=== PATIENT | male | born 1955 | race Caucasian/White ===

== ENCOUNTER 2022-01-29 05:45 | Inpatient (IN) ==
--- NOTE | 2022-01-26 11:20 | Anesthesiology Consultation ---
Date of Service January 26, 2022 Assessment & Plan (1) Encounter for pre-operative examination: Chart Review Chart Review: Acceptable Risk for Surgery and Patient NOT seen in Pre Admission Testing -COVID screening: Per PAT nursing assessment on 01/26/22. Pt tested Covid positive "at the beginning of Dec 2021" with home test. Had flu like symptoms- symptoms have since resolved. Pt scheduled to get PCR Covid test 01/26/22- results negative for Covid. No known recent COVID-19 positive contacts or current COVID-19 related symptoms. Travel screen negative. Patient vaccinated for Covid. History Surgery Operation Date: 01/29/22 07:30 Proposed Procedures p Robotic Laparoscopic Assisted Parital Left Nephrectomy - Peterson Rivas MD Height/Weight Height: 5 ft 8 in Weight: 81.647 kg Allergies Allergy/AdvReac Type Severity Reaction Status Date / Time Penicillins AdvReac Mild NAUSEA Verified 01/26/22 07:29 surgical maco Allergy Unknown ? Uncoded 01/26/22 07:30 reaction/was told reacted to Medications Home Medications Medication Instructions Recorded Confirmed Last Taken cholecalciferol (vitamin D3) 50 50 mcg PO QAM 10/01/20 01/26/22 Unknown mcg (2,000 unit) capsule tamsulosin 0.4 mg capsule 0.4 mg PO DAILY #90 caps 06/04/21 01/26/22 Unknown atenolol 25 mg tablet 25 mg PO BID 12/11/21 01/26/22 Unknown Medical Marijuana 1 dose inhalation UD PRN Anxiety 01/26/22 01/26/22 Unknown lorazepam 0.5 mg tablet 0.5 mg PO DAILY PRN Anxiety 01/26/22 01/26/22 Unknown sertraline 100 mg tablet 100 mg PO QAM 01/26/22 01/26/22 Unknown Past Medical History Medical History Anxiety and depression Degenerative disc disease History of COVID-19 begnining of December 2021 History of prostate cancer S/P RADIATION Hx of bipolar disorder Hyperlipemia Hypertension Kidney tumor REASON FOR SURGERY Medical marijuana use Past Family History Family History Mother , Passed age 60 of metastatic breast cancer No problems noted. Father , Passed age 66 of Prostate Cancer No problems noted. Brother No problems noted. Sister No problems noted. Sister No problems noted. Sister No problems noted. Sister No problems noted. Son No problems noted. Daughter No problems noted. Other No family history of adverse response to anesthesia Past Surgical History Surgical History History of anesthesia reaction WOKE UP IN MIDDLE OF TOE SURGERY ([facility]) History of back surgery (2012) Lumbar Spine Fusion History of cholecystectomy (1987) History of colonoscopy History of prostate biopsy (04/10/20) History of surgery on arm (2015) BICEP TENDON REPAIR>LEFT History of toe surgery Left Big Toe - Arthroscopic History of tonsillectomy History of tooth extraction History of ureter repair (1974) Right - Blocked Ureter Repair Social History Smoking Status: Former smoker tobacco type: cigarettes Smoking End Date: 5 YEARS Hx Alcohol Use: No Alcohol type: beer Hx Substance Use: No ([employer]) Lab Results Anesthesia Preop Results Results Anesthesia Widget: WBC 4.16 K/ul (4.8-10.8) L 01/14/22 Hgb 14.5 g/dl (14.0-18.0) 01/14/22 Hct 41.2 % (40.1-51.0) 01/14/22 Plt 132 K/uL (130-400) 01/14/22 Na 138 mmol/L (136-145) 01/14/22 K 3.9 mmol/L (3.5-5.1) 01/14/22 Cl 107 mmol/L (98-107) 01/14/22 CO2 24 mmol/L (21-32) 01/14/22 BUN 14 mg/dl (6-23) 01/14/22 Creat 0.82 mg/dl (0.6-1.4) 01/14/22 Glucose Level 75 mg/dl (70-99(Fasting)) 01/14/22 Urine Color Yellow 01/14/22 Urine Appearance Clear (Clear) 01/14/22 Urine pH 5.5 (4.5-7.5) 01/14/22 Urine Specific [place] 1.025 (1.000-1.030) 01/14/22 Urine Protein Negative (Negative) 01/14/22 Urine Glucose (UA) Negative (Negative) 01/14/22 Urine Ketones Negative (Negative) 01/14/22 Urine Blood Negative (Negative) 01/14/22 Urine Nitrite Negative (Negative) 01/14/22 Urine Bilirubin Negative (Negative) 01/14/22 Urine Urobilinogen Negative (Negative) 01/14/22 Urine Leukocyte Esterase Negative (Negative) 01/14/22 Testing Laboratory Results 01/14/22= URINE CULTURE: No growth Electrocardiogram Date: 01/14/22 Sinus bradycardia with first-degree AV block at 55 bpm Otherwise normal EKG per cardio Echocardiogram Date: 07/16/21 EF: 55% LV Function: normal RWMA: + none Other Findings: no LVH Valvular Disease: + no significant valvular disease Other Testing Chest CT 01/14/2022 = 3 mm indeterminate pulmonary nodule within the right middle lobe. Follow-up recommended. Otherwise no evidence for metastatic disease within the chest. Redemonstration of 4.5 cm left renal mass.
[2022-01-29] MEDS ORDERED: LR 15ML/HR IV SCH (06:00)
[2022-01-29] MEDS ORDERED: ceFAZolin 2000MG 2,000 MG/15 ML SYR IV SCH (06:00)
[2022-01-29] MEDS ORDERED: MIDAZOLAM HCL 1 MG/ML 2ML VIAL ONE (06:51)
[2022-01-29] MEDS ORDERED: fentaNYL citrate 100 MCG/2 ML VIAL ONE (06:51)
--- NOTE | 2022-01-29 06:54 | History & Physical Bridge Note ---
Date of Service January 29, 2022 History & Physical Bridge Note I have examined the patient, reviewed the History & Physical and in the interval since the performance of the History & Physical I have noted the following changes of clinical significance: no changes noted
[2022-01-29] MEDS ORDERED: PROPOFOL IV EMULSION 10 MG/ML 20 ML VIAL IV ONE (06:59)
[2022-01-29] MEDS ORDERED: ONDANSETRON INJ 2 MG/ML 2 ML VIAL ONE ×2 (06:59→12:11)
[2022-01-29] MEDS ORDERED: LIDOCAINE 2% MPF LOCAL 5 ML VIAL INFIL ONE (06:59)
[2022-01-29] MEDS ORDERED: ROCURONIUM BROMIDE 10 MG/ML 5 ML VIAL IV ONE ×7 (06:59→12:10)
[2022-01-29] MEDS ORDERED: GELATIN SPONGE SZ 100 ONE (07:02)
[2022-01-29] MEDS ORDERED: BUPIVACAINE 0.5 % 5 MG/1 ML MPF 30ML VIAL ONE (07:02)
[2022-01-29] MEDS ORDERED: fentaNYL citrate 100 MCG/2 ML VIAL IV PRN (07:17)
[2022-01-29] MEDS ORDERED: ONDANSETRON INJ 2 MG/ML 2 ML VIAL IV PRN ×2 (07:17→14:34)
[2022-01-29] MEDS ORDERED: ePHEDrine sulfate 50 MG/ML AMP IV PRN (07:17)
[2022-01-29] MEDS ORDERED: ATROPINE SULFATE 0.1 MG/ML 10ML SYR IV PRN (07:17)
[2022-01-29] MEDS ORDERED: ePHEDrine sulfate 50 MG/ML SYR ONE (08:42)
[2022-01-29] MEDS ORDERED: GLYCOPYRROLATE 0.2 MG/ML VIAL ONE ×3 (08:42→12:10)
[2022-01-29] MEDS ORDERED: NEOSTIGMINE METHYLSULFATE 1 MG/ML 10ML VIAL ONE (08:43)
[2022-01-29] MEDS ORDERED: DEXAMETHASONE SOD INJ 4 MG/ML VIAL ONE (08:43)
[2022-01-29] MEDS ORDERED: HYDROmorphone INJ 2 MG/ML SYR/VIAL ONE (09:11)
[2022-01-29] MEDS ORDERED: TISSEEL FIBRIN SEALANT 10ML TOP ONE (10:02)
[2022-01-29] MEDS ORDERED: ceFAZolin 1000MG 1,000 MG/7.5 ML SYR IV ONE (11:20)
[2022-01-29] MEDS ORDERED: ePHEDrine sulfate 50 MG/ML AMP ONE (11:46)
[2022-01-29] MEDS ORDERED: SURGICEL ABSORB HEMOSTAT 2IN X 14IN TOP ONE (11:54)
[2022-01-29] MEDS ORDERED: SUGAMMADEX SODIUM 200 MG/2 ML VIAL IV ONE (12:29)
--- NOTE | 2022-01-29 13:03 | Post Operative Brief Note ---
PG Immediate Post Op with CF Date of Surgery January 29, 2022 Pre & Post Diagnosis Operation Date: 01/29/22 07:30 Pre-Op Diagnosis: Renal Mass Post-Op Diagnosis: Renal Mass I identified the patient and participated in the time-out.: Yes Procedure Operation Date: 01/29/22 07:30 Actual Procedures p Robotic Laparoscopic Assisted Partial Left Nephrectomy(Left) - Peterson Rivas MD Surgeon Peterson Rivas MD Paper Box Cutter MAGALIE Langford. Edward Estrada MD. Estimated Blood Loss 300 Findings See Below Left renal mass identified and removed. Kidney capsule was closed with good hemostasis. Specimens Specimen Description: A. left renal mass Drains Greene Catheter (inserted by Jung CAO without complications) Anesthesia Type General Complications none Disposition Accompanied Patient To Recovery: Yes Disposition: Recovery Room
--- NOTE | 2022-01-29 13:27 | Operative Report ---
PG Post Operative Report Pre & Post Diagnosis Operation Date: 01/29/22 07:30 Pre-Op Diagnosis: Left renal Mass Post-Op Diagnosis: Left renal Mass I identified the patient and participated in the time-out.: Yes Procedure Operation Date: 01/29/22 07:30 Actual Procedures p Robotic Laparoscopic Assisted Partial Left Nephrectomy(Left) - Peterson Rivas MD Surgeon Peterson Rivas MD Director [employer] MAGALIE Langford. Edward Estrada MD. Estimated Blood Loss 300 Findings See Below Specimens Left renal mass Drains Greene catheter per urethra Anesthesia Type General Complications none Disposition Accompanied Patient To Recovery: Yes Disposition: Recovery Room Indications This is a 67-year-old male recently seen in the urology office for evaluation of gross hematuria. Work-up identified a left-sided renal mass. He presents to the OR today for surgical removal of his renal mass. Description of Procedure The patient was identified and informed consent was obtained. He was marked on the left side that was brought to the operating room where general anesthesia was initiated. He was placed in a flank position with the left side elevated. All pressure points were carefully padded. A timeout was then performed. Surgical marker was used to draw a line approximately 7 cm to the left of the umbilicus, in the mid clavicular area. Anticipated port sites were marked starting approximately 2 fingerbreadths below the costal margin. Subsequent ports were anticipated to be 6 to 7 cm space down this line. The second site was incised and then dissection was carried down to the fascia. A Veress needle was used to obtain access to the peritoneum. Good position was confirmed with a negative aspiration, appropriate drop test and low opening insufflation pressure. The abdomen was then inflated to 15 mmHg. The first robotic port was then placed and the camera was inserted. The abdominal cavity was surveyed. There was no injury to any visceral structures. There was some adhesions of the left colon to the abdominal wall. There were also some adhesions on the right side, but these appeared to be out of the way of where we would need to be placing ports. The remaining 3 robotic ports were placed under direct visualization. A 12 mm staffing assistant port was then placed in the midline. The robot was then docked. I began by sharply lysing the adhesions of the colon to the left abdominal wall. I was then able to reflect the colon along the white line of Toldt to expose Gerota's fascia. Once the colon was sufficiently reflected, the gonadal vessels and left ureter were identified. These were then dissected cephalad to identify the renal hilum. He had one renal artery and one renal vein. Adequate windows were dissected to facilitate placement of bulldog clamps on both vessels. I then turned my attention toward the renal mass. The mass was on the upper pole of his left kidney. I had to mobilize the upper pole to freed up from splenic attachments. Once there was adequate mobility, Gerota's fascia was incised and the fat was dissected away to expose the renal mass. The intraoperative ultrasound was then introduced and used to survey this area of the kidney. The mass appeared to be mostly exophytic and was deemed suitable for partial nephrectomy. The bulldog clamps were then applied to the renal artery and the renal vein. There was good blanching of the kidney. The renal mass was sharply excised leaving a margin of normal-appearing kidney tissue around the mass itself. Any point bleeding vessels were cauterized. Once the mass was free from the kidney, renorrhaphy was performed using a 2 layer approach. A 2-0 V-Loc suture was placed in the deep portion of the kidney defect and secured using Hem-o-maddy clips on both sides. The renal capsule was then reapproximated using interrupted 2-0 V-Loc sutures also secured with Hem-o-loks and Lapra-Ty's. There was good hemostasis at this point. The bulldog clips were then removed and there was still good hemostasis. Total warm ischemia time was 20 minutes and 8 seconds. A layer of Surgicel and Tisseel were applied to the resection area in the hilum. The renal mass was placed in a specimen bag. Final survey of the abdomen revealed good hemostasis and no injury to intra-abdominal contents. The robot was dedocked. The specimen was extracted through the staffing assistant port in the midline and was sent for analysis labeled as left renal mass. The wounds were then closed. The extraction site was closed using a deep 0 Vicryl running suture for the fascia. All wounds were anesthetized using 0.5% Marcaine. Skin incisions were closed using running subcuticular 4-0 Monocryl for the extraction site and buried interrupted 4-0 Monocryls for the robot sites. The patient was then awakened from anesthesia and brought to the PACU in stable condition. All sponge and instrument counts were correct at the end of the case. Of note, MAGALIE Langford acted as bedside staffing assistant for the majority of the case, helping with initial positioning, access, retraction, dissection and with closing. Edward Estrada DO acted as bedside staffing assistant for the mass excision and renorrhaphy. I attest to the content of the Intraoperative Record and any orders documented therein. Any exceptions are noted below.
--- NOTE | 2022-01-29 13:34 | Anesthesiology Progress Note ---
Date of Service January 29, 2022 Anesthesia Post Procedure Vital Signs Vital Signs: Temp Pulse Resp BP Pulse Ox O2 Del Method O2 Flow Rate 01/29/22 13:30 97.2 F L 62 17 94/55 L 94 Room Air 01/29/22 13:20 62 16 105/66 94 Room Air 01/29/22 13:10 77 16 100/52 L 98 Oxymask 5 01/29/22 13:00 67 16 92/44 L 98 Oxymask 5 01/29/22 12:52 96.8 F L 72 16 104/64 98 Oxymask 5 01/29/22 06:15 98.1 F 70 16 141/89 H 99 Room Air Transfer of Care Handoff Completed per policy Notes Mental Status: alert / awake / arousable and participated in evaluation Patient Amnestic to Procedure: Yes Nausea / Vomiting: adequately controlled Pain: adequately controlled Airway Patency, RR, SpO2: stable & adequate BP & HR: stable & adequate Hydration State: stable & adequate Anesthetic Complications: no major complications apparent and Pt Satisfied with anesthetic care
[2022-01-29 13:57] LABS: Hematocrit (blood only) 36.4 % (40.1-51.0); Hemoglobin 12.6 g/dl (14.0-18.0); Mean Corpuscular Hemoglobin 33.3 pg (25.0-34.0); Mean Corpuscular Hgb Conc 34.6 g/dL (32.0-36.0); Mean Corpuscular Volume 96.3 fL (80.0-100.0); Mean Platelet Volume 10.2 fL (9.4-12.4); Platelet Count 131 K/uL (130-400); RDW Coefficient of Variation 12.8 % (11.5-14.5); RDW Standard Deviation 45.5 fL (36.4-46.3); Red Blood Count 3.78 M/uL (4.63-6.08); White Blood Count 7.75 K/ul (4.8-10.8)
[2022-01-29 14:02] LABS: BUN Creatinine Ratio 14.8 (10-20); Calcium 8.2 mg/dl (8.5-10.1); Creatinine Clr Calc Pharmacy 85.7 ml/min; Est GFR (Non-African American) 88.9 ml/min; Potassium 3.7 mmol/L (3.5-5.1)
[2022-01-29 14:16] LABS: Basophils # (auto) 0.01 K/uL (0-0.2); Basophils % (auto) 0.1 %; Immature Granulocytes # (auto) 0.06 K/uL (0.00-0.02); Immature Granulocytes % (auto) 0.8 %; Lymphocytes # (auto) 0.53 K/uL (1.2-3.4); Lymphocytes % (auto) 6.8 %; Monocytes # (auto) 0.22 K/uL (0.24-0.82); Monocytes % (auto) 2.8 %; Neutrophils # (auto) 6.93 K/uL (1.4-6.5); Neutrophils % (auto) 89.5 %
[2022-01-29] MEDS ORDERED: MoRPHine SULFATE 2 MG/ML CARP IV PRN (14:34)
[2022-01-29] MEDS ORDERED: oxyCODONE HCL IR 5 MG TAB (IMMEDIATE RELEASE) PO PRN (14:34)
[2022-01-29] MEDS ORDERED: LORazepam 0.5 MG TAB PO PRN (14:34)
[2022-01-29] MEDS ORDERED: bisacodyL 5 MG TABEC PO PRN (14:34)
[2022-01-29] MEDS ORDERED: MoRPHine SULFATE 4 MG/ML 1 ML CARP\\VIAL IV PRN (14:34)
[2022-01-29] MEDS: LACTATED RINGER'S 1,000 ML IV SCH (15:26)
[2022-01-29] MEDS: ceFAZolin 2000MG 2,000 MG/15 ML SYR IV SCH ×2 (15:45→22:55)
[2022-01-29] MEDS: ACETAMINOPHEN 325 MG TAB PO SCH ×2 (15:45→20:51)
[2022-01-29] MEDS: oxyCODONE HCL IR 5 MG TAB (IMMEDIATE RELEASE) PO PRN (20:50)
[2022-01-29] MEDS: HEPARIN SOD 5,000 UNIT/0.5 ML VIAL SQ SCH (20:51)
[2022-01-29] MEDS: ATENOLOL 25 MG TABLET PO SCH (20:51)
[2022-01-29] MEDS: DOCUSATE SODIUM 100 MG CAP PO SCH (20:51)
[2022-01-30] MEDS: LACTATED RINGER'S 1,000 ML IV SCH ×2 (01:47→08:49)
[2022-01-30] MEDS: ACETAMINOPHEN 325 MG TAB PO SCH ×4 (02:31→20:08)
[2022-01-30 07:34] LABS: Hematocrit (blood only) 32.3 % (40.1-51.0); Hemoglobin 11.3 g/dl (14.0-18.0); Mean Corpuscular Hemoglobin 33.9 pg (25.0-34.0); Mean Platelet Volume 10.4 fL (9.4-12.4); Platelet Count 110 K/uL (130-400); RDW Coefficient of Variation 13.1 % (11.5-14.5); RDW Standard Deviation 46.4 fL (36.4-46.3); Red Blood Count 3.33 M/uL (4.63-6.08); White Blood Count 7.75 K/ul (4.8-10.8)
[2022-01-30 07:49] LABS: Basophils # (auto) 0.01 K/uL (0-0.2); Basophils % (auto) 0.1 %; Eosinophils # (auto) 0.01 K/uL (0-0.50); Eosinophils % (auto) 0.1 %; Immature Granulocytes # (auto) 0.04 K/uL (0.00-0.02); Immature Granulocytes % (auto) 0.5 %; Lymphocytes # (auto) 1.02 K/uL (1.2-3.4); Lymphocytes % (auto) 13.2 %; Monocytes # (auto) 0.87 K/uL (0.24-0.82); Monocytes % (auto) 11.2 %; Neutrophils % (auto) 74.9 %
[2022-01-30 07:56] LABS: BUN Creatinine Ratio 14.8 (10-20); Calcium 8.2 mg/dl (8.5-10.1); Creatinine Clr Calc Pharmacy 93.5 ml/min; Est GFR (African American) 106.6 ml/min; Potassium 4.3 mmol/L (3.5-5.1)
--- NOTE | 2022-01-30 08:11 | Urology Progress Note ---
Date of Service January 30, 2022 Assessment & Plan (1) Kidney tumor: Plan: Overall he is recovering appropriately from surgery. We reviewed goals for discharge including tolerating a diet, ambulating and pain under control on oral medications. I think he is likely going to be ready for discharge home today. Catheter can be removed this morning. Admission and Anticipated Discharge Date Admission Date: January 29, 2022 Subjective Feeling well Has not been up and ambulating at Minimal p.o. intake so far. He is passing some flatus. Not having too much pain, needed 1 Oxycodone overnight. No issues with catheter overnight Review of Systems Constitutional: No fevers chills Gastrointestinal: No nausea or vomiting Physical Exam Physical Exam: Well-appearing, NAD Respiratory: Breathing comfortably on room air, no audible wheezing Gastrointestinal (Abdomen): Abdomen soft, appropriately tender to palpation. Incisions are well approximated with Dermabond in place. No significant bruising. Genitourinary: Greene catheter in place draining light pink-tinged urine Results & Data ([facility]) Vital Signs (Past 12 Hours) Vital Signs Temp Pulse Resp BP BP Pulse Ox O2 Del Method 01/30/22 07:40 36.9 C 63 16 125/70 96 Room Air 01/30/22 02:43 36.9 C 68 18 120/72 96 Room Air 01/29/22 22:55 37 C 74 16 132/72 96 Room Air PG Care Time/CCT Total # of Minutes Spent Total Time Spent with Patient: Total time spent is greater than 50% in coordination of care (as documented) at patient's floor/unit and/or counseling patient: Coding Level of Care Code None Diagnoses Kidney tumor D49.519
[2022-01-30] MEDS: oxyCODONE HCL IR 5 MG TAB (IMMEDIATE RELEASE) PO PRN ×2 (08:15→15:27)
[2022-01-30] MEDS: ATENOLOL 25 MG TABLET PO SCH ×2 (08:19→20:09)
[2022-01-30] MEDS: DOCUSATE SODIUM 100 MG CAP PO SCH ×2 (08:19→20:08)
[2022-01-30] MEDS: SERTRALINE HCL 100 MG TABLET PO SCH (08:19)
[2022-01-30] MEDS: CHOLECALCIFEROL 1,000 UNITS 25 MCG TAB PO SCH (08:19)
[2022-01-30] MEDS: TAMSULOSIN HCL 0.4 MG CAP PO SCH (08:19)
[2022-01-30] MEDS: HEPARIN SOD 5,000 UNIT/0.5 ML VIAL SQ SCH ×2 (08:20→20:08)
--- NOTE | 2022-01-30 08:29 | Discharge Summary ---
Date of Service January 30, 2022 Admission HPI Per Admitting Provider This is a 67-year-old male recently seen in the urology office for evaluation of gross hematuria. Work-up identified a left-sided renal mass. He presents to the OR today for surgical removal of his renal mass. Admission Exam Per Admitting Provider Physical Exam Constitutional well developed and well nourished; no acute distress Eyes + anicteric sclerae; pupils not irregular Respiratory normal respiratory effort; no respiratory distress, does not use accessory muscles and no cough Cardiovascular well perfused Gastrointestinal (Abdomen) Inspection/Auscultation: abdomen normal to inspection; abdomen not distended Musculoskeletal Extremities: extremities normal to inspection Skin normal turgor; no rashes and no lesions Neurologic moves all extremities and awake Psychiatric Orientation: alert and oriented x 3 Principal Diagnosis Renal mass Discharge Exam Constitutional well developed and well nourished; no acute distress Respiratory normal respiratory effort; no respiratory distress and no labored breathing Gastrointestinal (Abdomen) Inspection/Auscultation: abdomen not distended Skin incisions appropriate, C/D/I Psychiatric Orientation: alert and oriented x 3 Discharge Data Allergies Allergy/AdvReac Type Severity Reaction Status Date / Time Penicillins AdvReac Mild NAUSEA Verified 01/29/22 06:09 surgical maco Allergy Unknown ? Uncoded 01/29/22 06:09 reaction/was told reacted to Procedures Performed Operation Date: 01/29/22 07:30 Actual Procedures p Robotic Laparoscopic Assisted Partial Left Nephrectomy(Left) - Peterson Rivas MD Hospital Course (1) Kidney tumor: Overall he is recovering appropriately from surgery. We reviewed goals for discharge including tolerating a diet, ambulating and pain under control on oral medications. I think he is likely going to be ready for discharge home today. Catheter can be removed this morning. Patient tolerating diet and ambulating without difficulty. He is ready for discharge to home after void. If unable to void, then catheter can be replaced with plan to remove next week in office. Total Time Total Time Spent Total Time Spent (In Minutes): 29 Discharge Plan Discharge Items Patient Disposition: Home - Self-Care Reason For Visit: Renal Mass Discharge Diagnosis: Renal Mass Activity: Per Instructions section Lifting: No more than 25 pounds Bathing Comment: Okay to shower, no tub bath or soaking Sexual Activity: Wait until after follow-up appointment Exercise/Sports: Wait until after follow-up appointment Driving/Machine Use: No driving while taking prescription pain medication Non-emergency contact: Surgeon and Urologist Call non-emergency contact if: you have any medication questions, your pain is not controlled, your pain is worsening, you have a fever, your temperature is above 101, your wound has increased redness, your wound has increased drainage and your wound pain has increased Follow-up/Referrals: Wally Robertson [Primary Care Provider] - Diet: Regular Addtl Attending Provider Instructions: Please take all medications as prescribed and keep all follow-ups as scheduled. Please call our office at [phone] with any questions, concerns or need to reschedule appointments for any reason. We are happy to assist you. Recovering at home: We recommend having someone with you for the first few days after surgery to help care for you. It is okay to shower tomorrow. Please avoid swimming, bathing or using hot tub until incisions are well healed. Avoid driving until you are not requiring pain medication any further. Walk at least a few times a day. Increase your distance, as you feel able. Stairs in your home are okay. Please avoid strenuous or sexual activity until your follow-up. We recommend using stool softener (i.e. Colace) to prevent constipation and straining, especially the first two weeks post operatively. [place] [facility] [place] [facility] [place] [phone] if you experience: Chest pain or trouble breathing (call [phone] or go to the hospital). Fever of 101F or higher Symptoms of infection at incision site, including redness or swelling, warmth, or bad-smelling drainage If you have catheter, and you notice: o Bloody urine or drainage that is dark red or has large clots (Please remember a small amount of blood is normal) o No drainage from the catheter for more than 6 hours o The catheter comes out of your bladder Pain that is not controlled with medicines Pending Studies at Discharge: Yes Studies:: Pathology Stand-Alone Forms: My Chartboost, Smoking Cessation Medications and DC Order Prescriptions: New docusate sodium [Colace] 100 mg capsule 100 mg PO BID Qty: 60 0RF Rx Instructions: Take twice daily for 2 weeks, then as needed for constipation. oxycodone-acetaminophen [Percocet] 5-325 mg tablet 1 tab PO Q8H PRN (Reason: pain) Qty: 7 0RF Rx Instructions: post operative pain Continued tamsulosin 0.4 mg capsule 0.4 mg PO DAILY Qty: 90 3RF Label Comments: qam Rx Instructions: Take one pill daily with food. cholecalciferol (vitamin D3) 50 mcg (2,000 unit) capsule 50 mcg PO QAM atenolol 25 mg tablet 25 mg PO BID sertraline 100 mg Tablet 100 mg PO QAM lorazepam 0.5 mg Tablet 0.5 mg PO DAILY PRN (Reason: Anxiety) Medical Marijuana 1 dose inhalation UD PRN (Reason: Anxiety) Discharge Orders: Discharge Order (Routine); Ordered 01/30/22 Ordered By: Irene Haas Admission Data Admit Date/Time: 01/29/22 12:59 Attending Provider: Peterson Rivas Admit Provider: Peterson Rivas Primary Care Provider: Wally Robertson Coding Level of Care Code D/C DAY MANAGEMENT <30 MINS Diagnoses Kidney tumor D49.519
[2022-01-30 23:05] VITALS: O2SAT 94
[2022-01-31] MEDS: ACETAMINOPHEN 325 MG TAB PO SCH ×2 (03:41→08:38)
[2022-01-31 06:04] LABS: Basophils # (auto) 0.02 K/uL (0-0.2); Basophils % (auto) 0.2 %; Eosinophils # (auto) 0.01 K/uL (0-0.50); Eosinophils % (auto) 0.1 %; Hematocrit (blood only) 31.2 % (40.1-51.0); Immature Granulocytes # (auto) 0.03 K/uL (0.00-0.02); Immature Granulocytes % (auto) 0.4 %; Lymphocytes # (auto) 0.71 K/uL (1.2-3.4); Lymphocytes % (auto) 8.3 %; Mean Corpuscular Hemoglobin 33.6 pg (25.0-34.0); Mean Corpuscular Hgb Conc 35.3 g/dL (32.0-36.0); Mean Corpuscular Volume 95.4 fL (80.0-100.0); Mean Platelet Volume 10.4 fL (9.4-12.4); Monocytes # (auto) 0.99 K/uL (0.24-0.82); Monocytes % (auto) 11.6 %; Neutrophils # (auto) 6.81 K/uL (1.4-6.5); Neutrophils % (auto) 79.4 %; Platelet Count 114 K/uL (130-400); RDW Coefficient of Variation 12.8 % (11.5-14.5); RDW Standard Deviation 45.1 fL (36.4-46.3); Red Blood Count 3.27 M/uL (4.63-6.08); White Blood Count 8.57 K/ul (4.8-10.8)
[2022-01-31 06:26] LABS: BUN Creatinine Ratio 17.9 (10-20); Calcium 8.1 mg/dl (8.5-10.1); Creatinine Clr Calc Pharmacy 113.1 ml/min; Est GFR (African American) 115.2 ml/min; Est GFR (Non-African American) 99.4 ml/min; Potassium 3.8 mmol/L (3.5-5.1)
[2022-01-31 08:06] VITALS: BP 130/78; TEMP 98.8
--- NOTE | 2022-01-31 08:37 | Urology Progress Note ---
Date of Service January 31, 2022 Assessment & Plan (1) Kidney tumor: Plan: Postop day #2 status post left partial nephrectomy Some voiding difficulties yesterday afternoon but this seems to have resolved overnight He is ambulatory, his labs are appropriate and he is feeling well Plan for discharge home this morning Admission and Anticipated Discharge Date Admission Date: January 29, 2022 Subjective Subjectively feeling well Ambulatory Urinating without difficulty Some hematuria Physical Exam Physical Exam: Incisions appropriate, abdomen soft Results & Data ([facility]) Vital Signs (Past 12 Hours) Vital Signs Temp Pulse Pulse Resp BP BP Pulse Ox 01/31/22 07:35 37.1 C 70 21 130/78 94 01/30/22 21:58 37.0 C 75 18 113/67 94 O2 Del Method 01/31/22 07:35 Room Air 01/30/22 21:58 Room Air PG Care Time/CCT Total # of Minutes Spent Total Time Spent with Patient: Total time spent is greater than 50% in coordination of care (as documented) at patient's floor/unit and/or counseling patient: Coding Level of Care Code None Diagnoses Kidney tumor D49.519
[2022-01-31] MEDS: TAMSULOSIN HCL 0.4 MG CAP PO SCH (08:38)
[2022-01-31] MEDS: DOCUSATE SODIUM 100 MG CAP PO SCH (08:38)
[2022-01-31] MEDS: ATENOLOL 25 MG TABLET PO SCH (08:38)
[2022-01-31] MEDS: SERTRALINE HCL 100 MG TABLET PO SCH (08:38)
[2022-01-31] MEDS: CHOLECALCIFEROL 1,000 UNITS 25 MCG TAB PO SCH (08:38)
[2022-01-31] MEDS: HEPARIN SOD 5,000 UNIT/0.5 ML VIAL SQ SCH (08:39)
[2022-01-31 09:48] VITALS: PULSE 75
--- NOTE | 2022-02-10 10:35 | Coding Query ---
PATHOLOGY To promote full compliance with coding requirements relating to patient care, physician participation is requested in all cases of hvac refrigeration technician uncertainty. 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
== END 2022-01-31 12:20 | disposition home or self-care (01) | DRG 658 ==
LOC: ASU 05:45 → 3W 12:59
DX: F32.A Depression, unspecified; Z85.46 Personal history of malignant neoplasm of prostate; Z01.818 Encounter for other preprocedural examination; Z80.42 Family history of malignant neoplasm of prostate; Z87.891 Personal history of nicotine dependence; Z20.822 Contact with and (suspected) exposure to COVID-19; R31.0 Gross hematuria; Z79.899 Other long term (current) drug therapy; F41.9 Anxiety disorder, unspecified; C64.2 Malignant neoplasm of left kidney, except renal pelvis; I10 Essential (primary) hypertension; Z80.3 Family history of malignant neoplasm of breast; Z86.16 Personal history of COVID-19; Z91.048 Other nonmedicinal substance allergy status; Z88.0 Allergy status to penicillin